=== PATIENT | male | born 1970 | race African-American/Black ===

== ENCOUNTER 2017-02-15 17:38 | Inpatient (IN) | payer OTHER ==
--- NOTE | ~2017-02-15 | CT4 ---
[facility] A Service of [facility] RADIOLOGY TEXT RESULTS PATIENT: WILLIAM AKINS LOCATION: [facility] 308-01 : 72 UNIT #: [id number] AGE: [address]: Robb Mon MD SEX: M ORDER DR: [id number] [facility] [address] [facility]. [place], [place] [address] [id number] MR#: [id number] Acc #: [id number] NAME: WILLIAM AKINS : 1970 SEX: M STUDY DATE/TIME: 02/16/2017 UNIT: [facility] ROOM: 80946 STUDY DESCRIPTION: CT Abd and Pelv Wo Cont Attending Physician: Lee Ann Ryan M.D. Ordering Physician: Lee Ann Ryan M.D. Primary Care Physician: Primary Care Physician No MEDICAL IMAGING REPORT This report is preliminary unless electronic signature is present EXAM CT abdomen and pelvis 02/16 at 00:46 hours INDICATIONS Generalized abdominal pain for the last 8 days with nausea. Acute kidney insufficiency. Leukocytosis. TECHNIQUE Axial images were obtained through the abdomen and pelvis without contrast. Comparison made with 02/15/2017 and 19:[address] exam was performed with one or more of the following radiation dose reduction techniques: automatic exposure control, adjustment of mA and/or kV according to patient size, and iterative reconstruction. FINDINGS Abdomen: Lung bases remain clear. The gallbladder surgically absent. No renal or ureteral stones. No hydronephrosis. Unenhanced solid organs are normal. Again seen are gas-filled large and small bowel loops suggesting an ileus. This is unchanged. No free fluid. Pelvis: Patient is status post appendectomy. GI tract, unchanged. Urinary bladder is normal. IMPRESSION No change from 02/15/2017 at 19:40 hours. Dictated by... Sudhakar Burns Jr., M.D. THIS IS AN ELECTRONICALLY VERIFIED REPORT [facility] A Service of [facility] RADIOLOGY TEXT RESULTS PATIENT: WILLIAM AKINS LOCATION: [facility] 308-01 : 72 UNIT #: [id number] AGE: [address]: Robb Mon MD SEX: M ORDER DR: Sudhakar Burns Jr., M.D. at 02/16/2017 11:15 AM RENITA/kendy TD: 02/16/2017 08:01 JOB #: [id number] MEDICAL IMAGING REPORT Page 1 of 1 COPY
--- NOTE | ~2017-02-15 | CO ---
Unit #: [id number] #: [id number] Patient: WILLIAM BATRES [id number] [address] [address] [id number] I MR#: [id number] NAME: WILLIAM BATRES ROOM: 308 Age: 46 Sex: M Admission Date: 02/15/2017 : 1970 Attending Physician: Robb Mon M.D. Primary Care Physician: Primary Care Physician No Consultation Date: 02/16/2017 CONSULTATION REPORT REASON FOR CONSULTATION Nausea, vomiting, dehydration, and weight loss. HISTORY OF PRESENT ILLNESS Mr. Batres is a 46-year-old gentleman, who lives with his mom. The patient is single and unemployed. He smokes a pack of cigarette daily and about four beers daily, but he uses daily marijuana. He has presented with a history of recurrent nausea and vomiting and significant weight loss. The patient mentions he has been to multiple ERs in the past few months. He has been smoking marijuana since the age of 17. The patient has had seven children from two relationships, but is currently single. He is admitted with acute kidney injury, volume depletion following nausea and vomiting. PAST MEDICAL HISTORY He mentions past medical history of gastroparesis as well as hypertension and gastroesophageal reflux.. PAST SURGICAL HISTORY Included a cholecystectomy and appendectomy. MEDICATIONS At home included Norvasc, Zofran, Protonix, Phenergan, Reglan, hydralazine. ALLERGIES He has no known drug allergies. FAMILY HISTORY Apparently, mother had gastroparesis. SOCIAL HISTORY Smokes a pack of cigarette daily and uses 4 to 5 beers daily. Also, uses daily marijuana. REVIEW OF SYSTEMS Detailed review of organ systems does not reveal any fever, chills, or rigors. There is history of significant weight loss. No history of headache, seizures, chest pain, or syncope. The patient has not had urination for the past few hours. No history of dysuria, hematuria, or pyuria. No history of focal seizures or extremity weakness. No history of skin rash, aphthous ulcer in the mouth, or reactive arthritis. PHYSICAL EXAMINATION GENERAL: He is alert and oriented, and appears emaciated. Unit #: [id number] #: [id number] Patient: BATRES,WILLIAM VITAL SIGNS: Stable with a temperature of 97.0, pulse 72 per minute and regular, respiratory rate is 20, blood pressure is 152/104. He weighs 159 pounds. HEENT: He has no pallor, icterus, lymphadenopathy, or peripheral edema. CARDIOVASCULAR: Normal heart sounds. No murmurs on auscultation. LUNGS: Reveals normal breath sounds. Good air entry. ABDOMEN: Soft and nontender. Liver and spleen are not palpable. Bowel sounds normal. DIAGNOSTIC STUDIES LABORATORY RESULTS: Shows a white count of 15,000 with left shift, hemoglobin is 13, and platelet count is 159. There is left shift and leukocytosis. BUN and creatinine shows BUN of 125 and creatinine of 8.7. Glucose of 132. Serum potassium was 3.1 and sodium 126. Albumin was 5.1, and CO2 on admission was 23. IMAGING STUDIES: A CT of the abdomen and pelvis without contrast was done and is unremarkable. CLINICAL IMPRESSION 1. The patient with severe volume depletion and acute kidney injury from volume losses due to nausea and vomiting. Although, it is tempting to assume that this is from gastroparesis. The patient most likely has cannabinoid hyperemesis syndrome and I spent a lot of time explaining him that this is relatively a new entry over the past few years and that he must stop marijuana, if he has to see if it is really the cause of his problem. The patient seemed to understand and promise that he will not smoke anymore marijuana. 2. Acute kidney injury, this is quite significant and profound due to volume depletion and is being taken care of by volume repletion and reversal of this should follow in due course of time. 3. Underlying medical problems such as hypertension, gastroesophageal reflux. The issue of compliance is a problem. Lastly, the patient has a significant tobacco abuse and alcohol abuse, and these were also addressed in detail. Thank you for asking me to see this young man. I appreciate the consult. Dictated by... Cedric Pedro/joan TD: 02/22/2017 23:09 JOB #: [id number] CC: Lee Ann Ryan M.D. CONSULTATION REPORT Page 1 of 1 X Marybeth,Sebastian Z MD X CONSULTATION REPORT
--- NOTE | ~2017-02-15 | CO ---
Unit #: [id number] #: [id number] Patient: WILLIAM BATRES [id number] [address] [address] [id number] I MR#: [id number] NAME: WILLIAM BATRES ROOM: 308 Age: 46 Sex: M Admission Date: 02/15/2017 : 1970 Attending Physician: Robb Mon M.D. Primary Care Physician: Lydia Primary Care Physician Consultation Date: 02/16/2017 CONSULTATION REPORT REASON FOR CONSULT Acute kidney injury. HISTORY OF PRESENT ILLNESS Mr. Batres is a 46-year-old -Salvadorean male with a history of gastroparesis, who apparently normally gets his care downtown at [facility], who presented with complaints of abdominal pain and a flare up of his gastroparesis. He says that he has been having trouble keeping anything down for about a week or so and has noticed a decreased urine output before coming in. His initial creatinine which was 8.7. Again, he says he has no knowledge of any prior kidney problems. He does not take any regular NSAIDs. He has no history of kidney stones. No recent dye exposure that I am aware of. Fortunately, his creatinine is improving with IV fluids. He does have a history of hypertension but tells me he has not been taking his medications for quite some time for his blood pressure. PAST MEDICAL HISTORY 1. Hypertension. 2. Gastroparesis, unknown etiology. 3. Tobacco abuse. 4. Marijuana use. 5. GERD. PAST SURGICAL HISTORY 1. Appendectomy. 2. Cholecystectomy. HOME MEDICATIONS 1. Hydralazine 25 mg p.o. t.i.d. 2. Amlodipine 10 mg daily. 3. Reglan 10 mg p.o. t.i.d. 4. Protonix 40 mg daily. 5. Zofran p.r.n. 6. Phenergan p.r.n. ALLERGIES No known drug allergies. FAMILY HISTORY Negative for any kidney problems. There is a family history of gastroparesis in his mom. SOCIAL HISTORY Unit #: [id number] #: [id number] Patient: WILLIAM BATRES The patient does smoke cigarettes and marijuana, social drinker. Denies any IV drug use. REVIEW OF SYSTEMS A complete 12-point review of systems was completed with the above findings. In addition, he denies any headaches or dizziness at this time. No nosebleed, sore throat, or ear ache. No chest pain or palpitations. No hemoptysis. No shortness of breath. No hematemesis. No bright red blood per rectum or melena. He is urinating now without difficulty. No hematuria. No swelling. He says that he has seen a orthotic finish grinding technician for a rash and they have said it is eczema. No flank pain. No fevers. No chills. No night sweats or hot flashes. No intolerance to heat or cold. No bleeding issues. He thinks he has lost weight with his recent illness. Unless otherwise indicated, the review of systems was negative. PHYSICAL EXAMINATION VITAL SIGNS: The patient is afebrile. Pulse 79, respiratory rate 18, blood pressure has been between 140/90 and 174/104. GENERAL: This is a 46-year-old -[place] male who is alert, oriented, in no acute distress. HEENT: Head is atraumatic, normocephalic. Eyes show pink conjunctivae. No scleral icterus. No nasal drainage or nosebleed. Oropharynx is now moist. No thrush. NECK: Shows no rigidity. No JVD. HEART: Regular rate and rhythm with no murmurs, gallops, or rubs appreciated. LUNGS: Clear with no wheezing, no rhonchi. Breathing is nonlabored. ABDOMEN: Soft with mild diffuse tenderness. No masses appreciated. EXTREMITIES: No lower extremity clubbing, cyanosis, or edema. SKIN: Skin is dry. He does have discolored maculopapular regions, especially on his trunks and arms which he says was diagnosed as eczema by a orthotic finish grinding technician. MUSCULOSKELETAL: No joint effusions noted. No CVA tenderness to palpation. NEUROLOGIC: Cranial nerves are grossly intact with no gross motor deficits. LYMPHATIC: There is no neck, cervical lymphadenopathy. PSYCHIATRIC: Mood and affect appear normal. DIAGNOSTIC STUDIES LABORATORY: Random urine sodium was just 11. Chemistry this morning showed a sodium of 128, potassium 3.8, chloride 90, bicarbonate 24, glucose 133, BUN 98, creatinine down to 5.8. Phosphorous 5.6. CK level 571. Magnesium was normal. CBC was remarkable for a hemoglobin 13, platelet count 159,000. Lactic acid level normal. Urine drug screen positive for opiates. Urinalysis did have some trace protein, 5-10 red blood cells with some hyaline and granular casts. Admission CK level was 875. Admission lactic acid level was 2.7. Admission sodium was 126 with a low potassium of 3.1. Bicarbonate was 23 and creatinine was 8.7. Therefore overall, patient's creatinine has improved from 8.7 down to 5.8. IMAGING: CT scan of the abdomen and pelvis without contrast done early this morning showed no kidney issues. There were some gas filled large and small bowel loops suggesting an ileus. ASSESSMENT AND PLAN 1. Acute kidney injury: This all looks prerenal from significant dehydration over the past week. He did get some Toradol in the ER Unit #: [id number] #: [id number] Patient: WILLIAM BATRES but seems to be improving nonetheless. We will continue fluids and manage his blood pressure. See no other reason for further workup at this time as long as he continues to improve. 2. Hypertension: Dr. Ryan has re-ordered his home medications and added some IV hydralazine and we can titrate his medicines from there. He says that he was not taking his home medications for quite some time, even before he got ill. 3. Hyponatremia: This is likely hypovolemic hyponatremia and is improving with saline which we will continue. 4. History of gastroparesis. 5. Elevated CPK level: I will check a TSH level for completeness sake. I would like to thank Dr. Ryan for this consult and the opportunity to participate in evaluation and care of Mr. Batres. Dictated by... Alvaro Rubalcava Jr., M.D. DOMINGO/joel TD: 02/16/2017 10:27 JOB #: [id number] CONSULTATION REPORT Page 1 of 1 X Alvaro Rubalcava MD CONSULTATION REPORT
--- NOTE | ~2017-02-15 | EKG ---
PATIENT: WILLIAM AKINS UNIT #: [id number] Ventricular Rate: 79 BPM Atrial Rate: 79 BPM P-R Interval: 156 ms QRS Duration: 102 ms Q-T Interval: 390 ms QTC Calculation(Bezet): 447 ms P Rayland: 80 degrees Calculated R Ray[place]: 94 degrees Calculated T Ray[place]: 47 degrees Diagnosis Line: Normal sinus rhythm Diagnosis Line: Possible Left atrial enlargement Diagnosis Line: Rightward axis Diagnosis Line: Borderline ECG Diagnosis Line: No previous ECGs available Diagnosis Line: Confirmed by ROXANA FLORES MD ([id number]) on 02/16/2017 Diagnosis Line: 10:48:10 PM INTERPRETING MD: SANDRA ROWAN
--- NOTE | ~2017-02-15 | HP ---
Unit #: [id number] #: [id number] Patient: WILLIAM BATRES [id number] [address] [address] [id number] I MR#: [id number] NAME: WILLIAM BATRES ROOM: 597[address] Age: 46 Sex: M Admission Date: 02/15/2017 : 1970 Attending Physician: Lee Ann Ryan M.D. Primary Care Physician: No Primary Care Physician HISTORY AND PHYSICAL CHIEF COMPLAINT Nausea, vomiting, no urination. HISTORY OF PRESENT ILLNESS Mr. Batres is a 41-year-old -Dominican male with a reported history of gastroparesis who presents to the emergency department with abdominal pain. The patient states his gastroparesis has been acting up recently. He has been unable to hold down any food or fluid. He is unable to tell me the last time he was really able to hold anything down. He noticed approximately one week ago he was having decreased urine output and states really he hadn't urinated since February 09. He started feeling worse and, thus, presented to our emergency department. Upon presentation, vital signs were all stable. Blood work, however, revealed an elevated creatinine of 8.7. The patient has received 3 L of fluid as a bolus and now is on normal saline at 200 an hour. He did receive a dose of Toradol prior to return of blood work. He also underwent a KUB that does not reveal any significant findings except maybe ileus. He is being admitted due to his elevated creatinine. He is still having achy abdominal pain diffusely but no longer having any vomiting. He does have some low grade nausea. He states he has tried Reglan in the past for his gastroparesis without any improvement. He is trying to get in to see a GI doctor but, unfortunately, does not have a primary care physician. He denies taking NSAIDs at home secondary to his abdominal pain. PAST MEDICAL HISTORY 1. Gastroparesis. 2. Tobaccoism. 3. Marijuana use. 4. Hypertension. 5. Gastroesophageal reflux disease. I will note, patient tells me that he doesn't have any medical problems but when I provided a list of his medications he has these underlying conditions. PAST SURGICAL HISTORY Includes: 1. Appendectomy. 2. Cholecystectomy. MEDICATIONS Home medications include: 1. Hydralazine 25 mg p.o. t.i.d. 2. Norvasc 10 mg daily. Unit #: [id number] #: [id number] Patient: WILLIAM BATRES 3. Reglan 10 mg p.o. t.i.d. 4. Zofran 4 mg every eight hours p.r.n. for nausea and vomiting. 5. Protonix 40 mg daily. 6. Phenergan 25 mg p.o. every four hours p.r.n. for nausea and vomiting. ALLERGIES No known drug allergies. FAMILY HISTORY Significant for gastroparesis which patient's mother also had. SOCIAL HISTORY The patient smokes a pack of cigarettes per day and has since age 27 for a 14 pack-year history of smoking. He does admit to occasional marijuana use but denies any other illicit drug use. He states he just drinks beer socially. REVIEW OF SYSTEMS The patient states he hasn't had a normal bowel movement in awhile. He denies any chest pain, he denies any shortness of breath, he denies any fever, he denies any chronic sinus infection, he denies any hemoptysis. He denies any hematuria or dysuria. He denies any joint pain. He did have fall last week while getting out of the bathtub but didn't sustain any injury. Otherwise, ten point review of systems reviewed and is negative. PHYSICAL EXAMINATION VITAL SIGNS: Temperature 98.0, blood pressure 161/96, pulse rate 81, respiratory rate 16. Oxygen saturation is in the upper 90s on room air. GENERAL: The patient is awake, he is alert. He is oriented x3 but is a poor historian. HEENT: Pupils equally round, reactive to light bilaterally. Anicteric sclerae. No conjunctival pallor. Oropharynx with dry mucous membranes. No erythema or exudate. NECK: Supple. No lymphadenopathy, no thyromegaly, no JVD. HEART: Regular rate and rhythm without murmur, rub or gallop. LUNGS: Clear to auscultation bilaterally without any wheezes, rhonchi or crackles. ABDOMEN: Soft. It is diffusely tender without guarding or rebound. It is nondistended. Positive bowel sounds. EXTREMITIES: No cyanosis, clubbing, or edema. Pedal pulses 2/4. SKIN: Warm, moist. There is no rash but there is some bruising and/or discoloration over the distal lower legs into the feet bilaterally. NEUROLOGIC: Cranial nerves II-XII are intact. Sensation, strength and deep tendon reflexes are all grossly normal. Negative Babinski. MUSCULOSKELETAL: No significant joint abnormalities appreciated on exam. No joint erythema or malformation. PSYCHIATRIC: Vague historian. Again, alert and oriented x3. No suicidal or homicidal ideations. DIAGNOSTIC STUDIES LABORATORY: Lab work done in the emergency department includes a CBC with white blood cell count of 15.7, hemoglobin 16.6, platelet count of 200. MCV is noted to be low at 71. Differential is normal. CMP reveals a sodium of 126, potassium 3.1, chloride 76, bicarb 25, BUN 125, creatinine 8.7, glucose of 132. Indirect bilirubin is mildly elevated at 1.4 and total bilirubin is 1.6. Total protein and albumin are Unit #: [id number] #: [id number] Patient: WILLIAM BATRES both high at 8.8 and 5.1 respectively. Amylase and lipase are normal. CPK is mildly elevated at 875. Lactic acid is 2.7. Urinalysis reveals trace protein, 100 of glucose, 1+ blood, 5-10 RBCs, 10-25 hyaline casts and 0-2 granular casts. No squamous cells were seen. IMAGING: KUB reveals gaseous distention of the small and large bowel concerning for ileus. ASSESSMENT 1. Acute kidney injury, likely prerenal plus or minus some component of tubular necrosis. Will rule out other etiology. 2. Hyponatremia, likely hypovolemic. 3. Hypokalemia. 4. Hypertension, controlled. 5. Leukocytosis, question reactive. 6. History of gastroparesis, poorly controlled per patient report. 7. Microcytosis. 8. Gastroesophageal reflux disease. 9. Marijuana use. 10. Tobaccoism. PLAN 1. Will admit patient to inpatient status with telemetry. 2. I am going to continue patient on normal saline at 200 mL/hour for 1 L and then continue at 150 mL/hour. I will also place Baum catheter and check bilateral renal ultrasound in addition to spot urine sodium, urine creatinine, urine protein and urine eosinophils. Will recheck CPK in the morning and will consult Dr. Jacome for further evaluation. Given patient's complaint of chest pain, I am also going to check CT scan of abdomen and pelvis, particularly in regards to acute kidney injury. I suspect his abdominal pain is muscular in origin. 3. Will continue IV fluids in regards to hyponatremia. Will have to monitor closely but I suspect this hyponatremia is rather acute. 4. Will replace potassium orally for now. I am going to hold on K-Mag protocol given it is unclear to me what his renal function will be in the morning and this can be replaced if it remains low. I will also check a magnesium level up on lab. 5. Will continue patient on his scheduled Reglan and provide p.r.n. Zofran for his gastroparesis. I am going to ask Dr. Rueda to evaluate the patient given his gastroparesis appears to be quite severe. 6. Will check iron levels in regards to patient's macrocytosis. Perhaps he has an underlying thalassemia if these are normal. 7. Will continue home medications for hypertension and monitor blood pressure. I will also provide hydralazine on a p.r.n. basis. 8. Will check urine drug screen in regards to history of marijuana use. 9. Briefly counsellors regarding tobaccoism. 10. Heparin for DVT prophylaxis. Dictated by Lee Ann Ryan M.D. [facility]/ Unit #: [id number] #: [id number] Patient: WILLIAM BATRES TD: 02/16/2017 05:52 JOB #: [id number] HISTORY AND PHYSICAL Page 1 of 1 X Lee Ann Ryan MD X HISTORY AND PHYSICAL
--- NOTE | ~2017-02-15 | DS ---
Unit #: [id number] #: [id number] Patient: WILLIAM AKINS [id number] [address] [address] [id number] I MR#: [id number] NAME: WILLIAM AKINS ROOM: 308 Age: 46 Sex: M Admission Date: 02/15/2017 : 1970 Discharge Date: 02/18/2017 Attending Physician: Robb Mon M.D. Primary Care Physician: No Primary Care Physician DISCHARGE SUMMARY DISCHARGE DIAGNOSES 1. Cyclical nausea and vomiting. 2. Cannabinoid induced hyperemesis. 3. Major depression without homicidal or suicidal ideation. 4. Acute renal failure, prerenal in nature, resolved at this time. 5. Resolved hyponatremia. 6. Hyperkalemia. 7. Essential hypertension. 8. Resolved leukocytosis. 9. History of gastroparesis. 10. Gastroesophageal reflux disease. 11. Tobacco usage. 12. All over body rash. PROCEDURES The patient had an upper EGD by Dr. Rueda on 02/16/17 with findings of distal confluent ulcerative gastritis as well as Lauren's esophagus. Biopsies were obtained. RYDER test was negative. Distal esophageal benign stricture which is clearly obstructing. The later was dilated using an 18 to 20 mm TTS balloon. Gastric cavity itself was normal. The patient had diffuse duodenitis involving the duodenal bulb as well as flattened folds in second and third part of duodenum. Biopsies were obtained from the antrum for RDYER test. In addition, biopsies were also obtained for histology. IMAGING 1. The patient had a 'chest x-ray of the abdomen' [sic] with impression diffuse gaseous distension in the small and large bowel likely reflecting an ileus. No free fluid was identified. Right side aortic arch. No active pulmonary disease. 2. CT abdomen and pelvis with impression cholecystectomy and appendectomy change with distension of small bowel, small loops of which are air filled and a few which are fluid filled. There is gas and stool in the colon. Findings suggest dynamic ileus rather than bowel obstruction. No definite bowel wall thickening or free fluid. No abscess or free air. 3. CT abdomen, again on 02/16/17. Impression: No change from 02/15/17. 4. Renal ultrasound on 02/16/17. Impression: Both kidneys show increased parenchymal echotexture suggesting changes of chronic renal disease. No hydronephrosis. LABS On the day of discharge, the patient's labs were: 1. BMP: Glucose of 137, BUN 13, creatinine 1.0, sodium 135, potassium Unit #: [id number] #: [id number] Patient: WILLIAM AKINS 3.0, chloride 99, CO2 27, calcium 8.1, phosphorous 5.6, magnesium 1.6, total protein 6.0, albumin 3.4, total bilirubin 2.7, AST 31, ALT 23, alkaline phosphatase 47. Amylase 47, lipase 37. 2. CBC with WBC of 11.4, RBC 5.36, hemoglobin 12.3, hematocrit 39.4, MCV 73.4, MCH 72.9, MCHC 31.2, RDW 13.1, platelets 142, MPV 8.9. HOSPITAL COURSE The patient is a 46-year-old -Maced[place] male with past medical history of essential hypertension, gastroparesis, tobacco usage, marijuana usage, gastroesophageal reflux disease, who presented to the emergency department with abdominal pain. The patient stated that his chronic gastroparesis had been acting up. He has not been able to hold down any food or liquid. He noticed about one week prior to admission he had decreased urine output and stated that he really had not urinated since February 09. He started feeling worse and presented to the emergency department. In the emergency department, his vital signs were stable and his workup revealed a creatinine of 8.7. The patient was given three liters of fluid as bolus and had normal saline running at 200 an hour. He was given a dose of Toradol prior to the workup. He had undergone a KUB that had no significant findings. He was admitted for elevated creatinine as well as nausea, vomiting. He was seen in consultation with Dr. Rueda who did an upper endoscopy. Please refer to his full dictated procedure for further details. Following the procedure, the patient was tolerating a liquid diet. He was also seen in consultation with Dr. Rubalcava from Nephrology from his acute renal failure. His renal failure was thought to be prerenal in nature and, after much aggressive IV fluid hydration, his creatinine today is 1.0 in comparison to 8.7 on admission. His estimated GFR is 105.6 compared to 8 on admission. The patient was also complaining to me about feeling quite depressed about his overall health but the patient had denied any homicidal nor suicidal ideation. I have initiated the patient on Paxil and had reminded him that he would need four to six weeks for any resolution or to see any improvement in his symptoms. He voiced understanding. The patient also complains to me about an all over body rash and examined this. He has blemishes, darkened skin all over his hands, some on his shoulders. I did not see on any trunk at this time. With his history of being previously incarcerated. I had checked for an HIV screening which was nonreactive. At this time, I will treat the patient supportively with a topical steroid and he can follow up with his primary care physician for this. DISCHARGE CONDITION Stable, to home. DISCHARGE ACTIVITY No restriction. The patient is to ambulate every day as tolerated as was prior to hospitalization. DISCHARGE DIET No restriction. DISCHARGE MEDICINES 1. Paxil 20 mg orally daily. 2. Zofran 4 mg orally every eight hours as needed for nausea. A prescription for 15 was given. 3. Phenergan 25 mg orally every four hours as needed for nausea. 4. Reglan 10 mg orally three times daily. A prescription for seven days was given. 5. Norvasc 10 mg orally daily. Unit #: [id number] #: [id number] Patient: WILLIAM AKINS 6. Hydralazine 25 mg orally three times daily. 7. Protonix 40 mg orally twice daily. A prescription was given. 8. Clobetasol cream 0.05% apply to the affected rash area three times daily as needed for itchiness. The patient tells me that he has no PCP and I have given him Dr. Vargas's office to follow up with. The patient is also to follow up with Dr. Rueda and to please call his office for the followup appointment. Dictated by... Kervin Orta PA-C for Cedric Arteaga TD: 02/20/2017 07:35 JOB #: [id number] DISCHARGE SUMMARY Page 1 of 1 X X DISCHARGE SUMMARY
--- NOTE | ~2017-02-15 | US77 ---
[facility] A Service of [facility] RADIOLOGY TEXT RESULTS PATIENT: WILLIAM AKINS LOCATION: [facility] : 74 UNIT #: [id number] AGE: [address]: Robb Mon MD SEX: M ORDER DR: [id number] [address] [address] [id number] I MR#: [id number] Acc #: [id number] NAME: WILLIAM AKINS : 1970 SEX: M STUDY DATE/TIME: 02/16/2017 9:17 UNIT: [facility] PCU ROOM: [facility] STUDY DESCRIPTION: US Kidney Bilateral Complete Attending Physician: Robb Mon M.D. Ordering Physician: Lee Ann Ryan M.D. Primary Care Physician: No Primary Care Physician MEDICAL IMAGING REPORT This report is preliminary unless electronic signature is present EXAM Renal ultrasound. INDICATION Renal insufficiency. BUN 98, creatinine 5.8, GFR 12.6. PROCEDURE Celaya-scale and Doppler imaging of the kidneys and bladder. COMPARISON STUDIES CT from 02/16/2017. FINDINGS Right kidney measures 9.9 cm. Bladder decompressed. Left kidney measures 9.8 cm. No hydronephrosis. Both kidneys show increased echotexture. IMPRESSION Both kidneys show increased parenchymal echotexture suggesting changes of chronic renal disease. No hydronephrosis. Dictated by... Neil Arana M.D. THIS IS AN ELECTRONICALLY VERIFIED REPORT Neil Arana M.D. at 02/17/2017 7:11 AM EED/kavon TD: 02/16/2017 12:21 JOB #: [id number] [facility] A Service of [facility] RADIOLOGY TEXT RESULTS PATIENT: WILLIAM AKINS LOCATION: [facility] : 74 UNIT #: [id number] AGE: [address]: Robb Mon MD SEX: M ORDER DR: MEDICAL IMAGING REPORT Page 1 of 1 COPY
--- NOTE | ~2017-02-15 | OR ---
Unit #: [id number] #: [id number] Patient: WILLIAM AKINS [id number] [address] [address] [id number] I MR#: [id number] NAME: WILLIAM AKINS ROOM: 308 Date of Procedure: 02/16/2017 Admission Date: 02/15/2017 Surgeon: Sebastian Rueda M.D. : 1970 Attending Physician: Robb Mon M.D. OPERATIVE REPORT PREOPERATIVE DIAGNOSIS Volume depletion, nausea, and vomiting. PROCEDURES PERFORMED Upper gastrointestinal endoscopy and biopsy as well as upper gastrointestinal endoscopy and a dilation with an 18 to 20 mm TTS balloon. POSTOPERATIVE DIAGNOSES 1. The patient had distal confluent ulcerative esophagitis as well as Lauren esophagus. Appropriate biopsies were obtained. 2. There was distal esophageal benign stricture, which was clearly obstructing. The latter was dilated using an 18 to 20 mm TTS balloon. 3. The gastric cavity itself was normal. 4. The patient had diffuse duodenitis involving the duodenal bulb as well as flattened folds in second and third part of duodenum. Biopsies were obtained from the antrum for CLOtest. In addition, biopsies were also obtained for histology. RECOMMENDATIONS The patient most likely has cannabinoid hyperemesis syndrome and must stop marijuana. We will do volume repletion and monitor the renal function. Also, the patient will be on b.i.d. PPI therapy, which is far more effective than the H2 blockers he is currently on. He can also advance diet as tolerated. SEDATION USED MAC. DESCRIPTION OF PROCEDURE Following detailed explanation of the potential risks and complications of an upper endoscopy, namely perforation, bleeding, and complication related to sedation, the patient was brought to GI lab and laid in the left lateral decubitus position. Lubricated tip of the Olympus video upper endoscope was passed through the bite block into the proximal esophagus under direct vision. The entire esophageal mucosa was examined. The patient was noted to have distal esophageal benign stricture with a classic appearance along with confluent ulcerative esophagitis as well as evidence of Lauren esophagus. The scope was then advanced into the gastric cavity and the latter was insufflated. Mucosa of the fundus, body, and antrum was examined and appeared unremarkable. Pylorus was intubated with visualization of the duodenal bulb. The latter was noted to have diffuse duodenitis with erosions and erythema. Second and third Unit #: [id number] #: [id number] Patient: WILLIAM AKINS part of the duodenum appeared to have somewhat flattened mucosal folds. Biopsies were obtained from these areas for histology. The scope was then withdrawn in the antrum and retroverted, whereupon incisura, cardia, and greater curve was examined and a biopsy was obtained from the antrum for CLOtest. The scope was then withdrawn in the distal esophagus. An 18 to 20 mm TTS balloon was passed through the accessory channel of the scope and step-up dilation of the distal esophageal stricture was done. The entire esophageal mucosa was examined all the way up to pharynx and no additional findings were noted. The patient tolerated the procedure without any postprocedure complications. Dictated by... Cedric Pedro/joan TD: 02/17/2017 23:35 JOB #: [id number] CC: Lee Ann Ryan M.D. OPERATIVE REPORT Page 1 of 1 X Sebastian Rueda MD X PROCEDURE OPERATIVE NOTE
--- NOTE | ~2017-02-15 | CT4 ---
[facility] A Service of [facility] & [facility] RADIOLOGY TEXT RESULTS PATIENT: WILLIAM AKINS LOCATION: [facility] 308-01 : 74 UNIT #: [id number] AGE: [address]: Robb Mon MD SEX: M ORDER DR: [id number] [facility] [address] [facility] [place], [place] [address] [id number] I MR#: [id number] Acc #: [id number] NAME: WILLIAM AKINS : 1970 SEX: M STUDY DATE/TIME: 02/15/2017 19:40 UNIT: [facility] ROOM: 52671 STUDY DESCRIPTION: CT Abd and Pelv Wo Cont Attending Physician: Lee Ann Ryan M.D. Ordering Physician: Emerson Mullen M.D. Primary Care Physician: Primary Care Physician No MEDICAL IMAGING REPORT This report is preliminary unless electronic signature is present EXAM CT abdomen and pelvis without contrast 02/15/2017 1940 hours HISTORY 46-year-old man with abdominal pain, nausea, vomiting and diarrhea beginning 02/08/2017, complaining of weakness and dehydration today. Difficulty urinating for 1 week. COMPARISON Acute abdomen series 02/15/2017 TECHNIQUE Helical noncontrasted images were obtained from the lung bases through the pubic symphysis without oral or intravenous contrast. Sagittal and coronal reconstructions were performed. Total exam DLP 674 mGy-cm. This CT exam was performed with one or more of the following radiation dose reduction techniques: Automatic exposure control, adjustment of mA and/or kV according to patient size, and iterative reconstruction. FINDINGS Images through the lung bases are clear. It appears the descending thoracic aorta is to the right of the esophagus and crosses to the left at the esophageal hiatus. Images through the abdomen demonstrate a normal noncontrasted appearance of the liver, spleen, pancreas and bile ducts. There are clips consistent with prior cholecystectomy. The adrenal glands are normal. The kidneys demonstrate no mass, stone or obstruction. There is no ureteral calculus. The bladder is normal. The stomach contains a small amount of fluid but is nondistended. There is distension of multiple loops of small bowel and colon, some of which STS. [facility] A Service of [facility] & [facility] RADIOLOGY TEXT RESULTS PATIENT: WILLIAM AKINS LOCATION: [facility] 308-01 : 74 UNIT #: [id number] AGE: [address]: Robb Mon MD SEX: M ORDER DR: are air-filled and some of which are fluid-filled. Findings are most suggestive of an adynamic ileus. There is moderate stool in the right colon only. There are clips consistent with prior appendectomy. CT pelvis demonstrates a normal appearance to the bladder. The rectosigmoid colon is decompressed. IMPRESSION 1. Cholecystectomy and appendectomy change. 2. There is distension of small bowel, some loops of which are air-filled and a few of which are fluid-filled. There is gas and stool in the colon. Findings suggest adynamic ileus rather than bowel obstruction. There is no definite bowel wall thickening or free fluid. No abscess or free air. Dictated by... Kendra Grajeda M.D. THIS IS AN ELECTRONICALLY VERIFIED REPORT Kendra Grajeda M.D. at 02/16/2017 9:29 AM CAPO/marisa TD: 02/16/2017 00:00 JOB #: [id number] MEDICAL IMAGING REPORT Page 1 of 1 COPY
--- NOTE | ~2017-02-15 | CR2 ---
[facility] A Service of [facility] & [facility] RADIOLOGY TEXT RESULTS PATIENT: WILLIAM AKINS LOCATION: [facility] 308-01 : 74 UNIT #: [id number] AGE: [address]: Robb Mon MD SEX: M ORDER DR: [id number] [facility] [address] [facility]. [place], [place] [address] [id number] E MR#: [id number] Acc #: [id number] NAME: WILLIAM AKINS : 1970 SEX: M STUDY DATE/TIME: 02/15/2017 17:44 UNIT: [facility] ROOM: STUDY DESCRIPTION: CR Abdomen Acute Series Attending Physician: Nadeen Caldwell M.D. Ordering Physician: Emerson Mullen M.D. Primary Care Physician: Primary Care Physician No MEDICAL IMAGING REPORT This report is preliminary unless electronic signature is present EXAM Acute abdomen series, 3 views, 02/15/2017 HISTORY Abdomen pain and vomiting for 1 week. FINDINGS There is no prior exam for comparison. 3 views of the chest and abdomen were obtained. There is diffuse gaseous distension of the small and large bowel likely reflecting ileus. No free air is identified. Surgical clips are seen in the right upper quadrant and right lower quadrant. The heart is normal in size. A right side aortic arch is noted. Lungs are hyperinflated but otherwise clear. There are no pleural effusions. IMPRESSION 1. No prior exam for comparison. 2. Diffuse gaseous distension of the small and large bowel likely reflecting ileus. No free air is identified. 3. Right side aortic arch. No active pulmonary disease. Dictated by... Felipe Cast M.D. THIS IS AN ELECTRONICALLY VERIFIED REPORT Felipe Cast M.D. at 02/16/2017 10:27 AM BESS/marisa TD: 02/15/2017 22:32 JOB #: [id number] MEDICAL IMAGING REPORT Page 1 of 1 COPY
[2017-02-15 18:26] LABS: BASOPHIL# 0.1 X10e3 (0-0.3); BASOPHIL% 0.4 % (0-2.5); EOSINOPHIL% 0.2 % (0.0-7.0); HEMATOCRIT 51.9 % (38.0-50.0); HEMOGLOBIN 16.6 gm/dL (13.0-16.0); LYMPHOCYTE# 1.8 X10e3 (1.0-3.5); LYMPHOCYTE% 11.7 % (17.0-45.0); MEAN CELL VOLUME 71.7 FL (83-96); MEAN CORPUSCULAR HEMOGLOBIN 22.9 PG (28-34); MEAN PLATELET VOLUME 9.6 FL (6.5-11.5); MONOCYTE# 1.7 X10e3 (0-1.0); MONOCYTE% 10.6 % (3.0-12.0); NEUTROPHIL# 12.1 X10e3 (1.5-7.1); NEUTROPHIL% 77.1 % (40-75); PLATELET COUNT 200 X10e3 (140-420); RED BLOOD COUNT 7.23 X10e (3.90-5.60); RED CELL DISTRIBUTION WIDTH 14.2 % (11.0-15.5); WHITE BLOOD COUNT 15.7 X10e3 (4.0-10.5)
[2017-02-15 18:30] LABS: DIFF IND YES
[2017-02-15 18:48] LABS: ACANTHOCYTES PRESENT; ANISOCYTOSIS SL; HYPOCHROMIA SL; MICROCYTOSIS SL; PLATELET ESTIMATE NORMAL (NORMAL); POIKILOCYTOSIS SL; TARGET CELLS SL
[2017-02-15 18:49] LABS: OVALOCYTES PRESENT
[2017-02-15 19:17] LABS: ALBUMIN SERUM 5.1 g/dL (3.5-5.0); BILIRUBIN, DIRECT 0.2 mg/dL (0.0-0.2); BILIRUBIN,INDIRECT 1.4 mg/dL (0.0-0.9); BILIRUBIN,TOTAL 1.6 mg/dL (0.2-2.0); CALCIUM SERUM 9.9 mg/dL (8.4-10.2); CREATININE SERUM 8.7 mg/dL (0.6-1.4); PROTEIN TOTAL SERUM 8.8 g/dL (6.0-8.3)
[2017-02-15 19:18] LABS: BUN/CREATININE RATIO 14.36; POTASSIUM 3.1 mmol/L (3.5-5.1)
[2017-02-15] MEDS ORDERED: NO MEDICATIONS (20:43)
[2017-02-15 22:46] LABS: URINE SOURCE CLEAN CATCH
[2017-02-15 22:48] LABS: URINE APPEARANCE CLEAR; URINE BILIRUBIN NEG (NEG); URINE BLOOD 1+ (NEG); URINE COLOR YELLOW; URINE GLUCOSE 100 MG/DL (NEG); URINE KETONE NEG (NEG); URINE LEUKOCYTE ESTERASE NEG (NEG); URINE NITRATE NEG (NEG); URINE PROTEIN TRACE (NEG); URINE SPECIFIC GRAVITY 1.015 (1.003-1.035); URINE UROBILINOGEN 0.2 MG/DL (NEG)
[2017-02-15 22:50] LABS: URINE BACTERIA AUWI NEG (NEGATIVE); URINE SQUAMOUS EPITHELIAL CELL NONE SEEN /[HPF]
[2017-02-15 23:03] LABS: CULTURE INDICATED? NO
[2017-02-15 23:04] LABS: URINE GRANULAR CAST 0-2 /[HPF]
[2017-02-15] MEDS ORDERED: HYDRALAZINE HCL25 MG PO (23:15)
[2017-02-15] MEDS ORDERED: REGLAN10 MG PO (23:16)
[2017-02-15] MEDS ORDERED: AMLODIPINE BESY10 MG PO (23:16)
[2017-02-15] MEDS ORDERED: ZOFRAN PO (23:17)
[2017-02-15] MEDS ORDERED: PROTONIX PO (23:17)
[2017-02-15] MEDS ORDERED: PHENERGAN25 M1 PO (23:17)
[2017-02-16 00:13] LABS: AMPHETAMINE NEG (NEG); BARBITURATES NEG (NEG); BENZODIAZEPINES NEG (NEG); COCAINE NEG (NEG); MARIJUANA NEG (NEG); OPIATES POS (NEG); TRICYCLIC ANTIDEPRESSANTS NEG (NEG); U METHADONE NEG (NEG)
[2017-02-16 05:21] LABS: HEMATOCRIT 40.9 % (38.0-50.0); LYMPHOCYTE# 0.4 X10e3 (1.0-3.5); LYMPHOCYTE% 4.2 % (17.0-45.0); MEAN CELL VOLUME 72.1 FL (83-96); MEAN CORPUSCULAR HEMOGLOBIN 23.1 PG (28-34); MEAN CORPUSCULAR HGB CONC 32.1 g/dL (30-36); MEAN PLATELET VOLUME 9.3 FL (6.5-11.5); MONOCYTE# 0.3 X10e3 (0-1.0); MONOCYTE% 3.5 % (3.0-12.0); NEUTROPHIL# 8.3 X10e3 (1.5-7.1); NEUTROPHIL% 92.3 % (40-75); PLATELET COUNT 159 X10e3 (140-420); RED BLOOD COUNT 5.68 X10e (3.90-5.60); RED CELL DISTRIBUTION WIDTH 13.8 % (11.0-15.5)
[2017-02-16 05:23] LABS: DIFF IND NO; HEMOGLOBIN 13.1 gm/dL (13.0-16.0)
[2017-02-16 06:10] LABS: BUN/CREATININE RATIO 16.89; CALCIUM SERUM 8.4 mg/dL (8.4-10.2); GLOM FILT RATE Estimated 12.6 mL/min (>60); MAGNESIUM 2.4 mg/dL (1.6-3.0); PHOSPHOROUS 5.6 mg/dL (2.5-4.6); POTASSIUM 3.8 mmol/L (3.5-5.1)
[2017-02-16 06:14] LABS: CREATININE SERUM 5.8 mg/dL (0.6-1.4)
[2017-02-16 07:45] LABS: CREATININE,RANDOM URINE 154 mg/dL; SODIUM URINE RANDOM 11 mmol/L
[2017-02-17 12:51] LABS: HEMATOCRIT 36.6 % (38.0-50.0); HEMOGLOBIN 11.4 gm/dL (13.0-16.0); MEAN CELL VOLUME 73.8 FL (83-96); MEAN CORPUSCULAR HEMOGLOBIN 22.9 PG (28-34); MEAN CORPUSCULAR HGB CONC 31.1 g/dL (30-36); MEAN PLATELET VOLUME 9.8 FL (6.5-11.5); RED BLOOD COUNT 4.96 X10e (3.90-5.60); RED CELL DISTRIBUTION WIDTH 13.8 % (11.0-15.5); WHITE BLOOD COUNT 13.4 X10e3 (4.0-10.5)
[2017-02-17 15:56] LABS: ALBUMIN SERUM 3.6 g/dL (3.5-5.0); BILIRUBIN,TOTAL 0.7 mg/dL (0.2-2.0); BUN/CREATININE RATIO 23.07; CALCIUM SERUM 8.3 mg/dL (8.4-10.2); CREATININE SERUM 1.3 mg/dL (0.6-1.4); GLOM FILT RATE Estimated 76.9 mL/min (>60); POTASSIUM 3.5 mmol/L (3.5-5.1); PROTEIN TOTAL SERUM 6.3 g/dL (6.0-8.3)
[2017-02-18 11:44] LABS: HEMATOCRIT 39.4 % (38.0-50.0); HEMOGLOBIN 12.3 gm/dL (13.0-16.0); MEAN CELL VOLUME 73.4 FL (83-96); MEAN CORPUSCULAR HEMOGLOBIN 22.9 PG (28-34); MEAN CORPUSCULAR HGB CONC 31.2 g/dL (30-36); MEAN PLATELET VOLUME 8.9 FL (6.5-11.5); RED BLOOD COUNT 5.36 X10e (3.90-5.60); RED CELL DISTRIBUTION WIDTH 14.1 % (11.0-15.5); WHITE BLOOD COUNT 11.4 X10e3 (4.0-10.5)
[2017-02-18 12:24] LABS: ALBUMIN SERUM 3.4 g/dL (3.5-5.0); BILIRUBIN,TOTAL 0.7 mg/dL (0.2-2.0); CALCIUM SERUM 8.1 mg/dL (8.4-10.2); GLOM FILT RATE Estimated 105.6 mL/min (>60); MAGNESIUM 1.6 mg/dL (1.6-3.0)
[2017-02-18] MEDS ORDERED: PAXIL PO (15:21)
[2017-02-18] MEDS ORDERED: PROTONIX PO (15:22)
[2017-02-18] MEDS ORDERED: CLOBETASOL 0.0560 GM TOP (15:23)
== END 2017-02-18 17:43 | disposition home or self-care (01) | DRG 683 ==
LOC: CED 17:38 → CEDOF 17:39 → C3A PCU 02-16 08:14
PROVIDERS: Emergency Medicine; Internal Medicine; Internal Medicine Nephrology; Physician Assistant Medical
PROC: 0DB98ZX Excision of Duodenum, Via Natural or Artificial Opening Endoscopic, Diagnostic (ICD-10-PCS; principal; 2017-02-15)
PROC: 0DB68ZX Excision of Stomach, Via Natural or Artificial Opening Endoscopic, Diagnostic (ICD-10-PCS; 2017-02-15)
PROC: 0D738ZZ Dilation of Lower Esophagus, Via Natural or Artificial Opening Endoscopic (ICD-10-PCS; 2017-02-15)
DX: N17.9 Acute kidney failure, unspecified (principal); E87.1 Hypo-osmolality and hyponatremia; K31.84 Gastroparesis; E87.5 Hyperkalemia; K22.2 Esophageal obstruction; I10 Essential (primary) hypertension; F12.988 Cannabis use, unspecified with other cannabis-induced disorder; R11.2 Nausea with vomiting, unspecified; F32.9 Major depressive disorder, single episode, unspecified; K21.9 Gastro-esophageal reflux disease without esophagitis; R21 Rash and other nonspecific skin eruption; F17.210 Nicotine dependence, cigarettes, uncomplicated; K22.70 Barrett's esophagus without dysplasia; K29.80 Duodenitis without bleeding; Z91.14 Patient's other noncompliance with medication regimen; Z79.899 Other long term (current) drug therapy
CPT/HCPCS: 74022; 74176; 76770; 80048; 80053; 80076; 80307; 81003; 82150; 82550; 82570; 83540; 83550; 83605; 83690; 83735; 84100; 84156; 84300; 84443; 85025; 85027; 87040; 87077; 87806; 88305; 88312; 89190; 93005; 96361; 96374; 96375; 99291; J0360; J1200; J1644; J1885; J2250; J2270; J2405; J2543; J2930; J3010; J3475

== ENCOUNTER 2017-02-22 23:59 | Emergency (ER) | payer OTHER ==
[~2017-02-22 23:59] MED LIST: AMLODIPINE BESY10 MG PO; CLOBETASOL 0.0560 GM TOP; HYDRALAZINE HCL25 MG PO; NO MEDICATIONS; PAXIL PO; PHENERGAN25 M1 PO; PROTONIX PO; REGLAN10 MG PO; ZOFRAN PO
[2017-02-23 02:45] LABS: BASOPHIL# 0.2 X10e3 (0-0.3); BASOPHIL% 0.8 % (0-2.5); EOSINOPHIL% 0.2 % (0.0-7.0); HEMOGLOBIN 11.4 gm/dL (13.0-16.0); LYMPHOCYTE# 1.9 X10e3 (1.0-3.5); LYMPHOCYTE% 10.2 % (17.0-45.0); MEAN CELL VOLUME 74.1 FL (83-96); MEAN CORPUSCULAR HEMOGLOBIN 22.8 PG (28-34); MEAN CORPUSCULAR HGB CONC 30.7 g/dL (30-36); MEAN PLATELET VOLUME 8.6 FL (6.5-11.5); MONOCYTE# 0.8 X10e3 (0-1.0); MONOCYTE% 4.1 % (3.0-12.0); NEUTROPHIL# 16.1 X10e3 (1.5-7.1); NEUTROPHIL% 84.7 % (40-75); PLATELET COUNT 263 X10e3 (140-420); RED CELL DISTRIBUTION WIDTH 14.5 % (11.0-15.5); WHITE BLOOD COUNT 19.1 X10e3 (4.0-10.5)
[2017-02-23 02:46] LABS: DIFF IND YES
[2017-02-23 03:00] LABS: MICROCYTOSIS MOD; PLATELET ESTIMATE NORMAL (NORMAL)
[2017-02-23 03:22] LABS: ALBUMIN SERUM 3.7 g/dL (3.5-5.0); BILIRUBIN, DIRECT 0.1 mg/dL (0.0-0.2); BILIRUBIN,INDIRECT 0.5 mg/dL (0.0-0.9); BILIRUBIN,TOTAL 0.6 mg/dL (0.2-2.0); GLOM FILT RATE Estimated 105.6 mL/min (>60); POTASSIUM 3.5 mmol/L (3.5-5.1); PROTEIN TOTAL SERUM 6.5 g/dL (6.0-8.3)
== END 2017-02-23 04:57 | disposition home or self-care (01) ==
LOC: CED 23:59
PROVIDERS: Emergency Medicine
DX: R10.12 Left upper quadrant pain (principal); R11.2 Nausea with vomiting, unspecified; E11.9 Type 2 diabetes mellitus without complications; I10 Essential (primary) hypertension; Z90.49 Acquired absence of other specified parts of digestive tract; F17.200 Nicotine dependence, unspecified, uncomplicated; Z79.899 Other long term (current) drug therapy
CPT/HCPCS: 36415; 80048; 80076; 82150; 83690; 85025; 96361; 96374; 96375; 99284; J2270; J2405

== ENCOUNTER 2017-02-27 08:04 | Emergency (ER) | payer OTHER ==
[2017-02-27 08:30] LABS: BASOPHIL# 0.1 X10e3 (0-0.3); BASOPHIL% 0.4 % (0-2.5); EOSINOPHIL# 0.1 X10e3 (0-0.7); EOSINOPHIL% 0.7 % (0.0-7.0); HEMOGLOBIN 11.8 gm/dL (13.0-16.0); LYMPHOCYTE# 1.7 X10e3 (1.0-3.5); MEAN CELL VOLUME 74.4 FL (83-96); MEAN CORPUSCULAR HEMOGLOBIN 23.2 PG (28-34); MEAN CORPUSCULAR HGB CONC 31.1 g/dL (30-36); MONOCYTE# 0.6 X10e3 (0-1.0); MONOCYTE% 4.7 % (3.0-12.0); NEUTROPHIL# 10.9 X10e3 (1.5-7.1); NEUTROPHIL% 81.2 % (40-75); PLATELET COUNT 287 X10e3 (140-420); RED BLOOD COUNT 5.11 X10e (3.90-5.60); RED CELL DISTRIBUTION WIDTH 14.7 % (11.0-15.5); WHITE BLOOD COUNT 13.4 X10e3 (4.0-10.5)
[2017-02-27 08:33] LABS: DIFF IND NO
[2017-02-27 09:42] LABS: ALBUMIN SERUM 3.6 g/dL (3.5-5.0); BILIRUBIN,TOTAL 0.4 mg/dL (0.2-2.0); BUN/CREATININE RATIO 14.44; CALCIUM SERUM 8.8 mg/dL (8.4-10.2); CREATININE SERUM 0.9 mg/dL (0.6-1.4); POTASSIUM 3.7 mmol/L (3.5-5.1); PROTEIN TOTAL SERUM 6.7 g/dL (6.0-8.3)
[2017-02-27 10:34] LABS: URINE SOURCE CLEAN CATCH
[2017-02-27 10:46] LABS: URINE APPEARANCE CLEAR; URINE BILIRUBIN NEG (NEG); URINE BLOOD NEG (NEG); URINE COLOR YELLOW; URINE GLUCOSE 250 MG/DL (NEG); URINE KETONE 1+ (NEG); URINE LEUKOCYTE ESTERASE NEG (NEG); URINE NITRATE NEG (NEG); URINE PH 6.5 (5-8); URINE PROTEIN NEG (NEG); URINE SPECIFIC GRAVITY 1.023 (1.003-1.035); URINE UROBILINOGEN 0.2 MG/DL (NEG)
[2017-02-27 10:56] LABS: CULTURE INDICATED? NO
[2017-02-27 10:57] LABS: AMPHETAMINE NEG (NEG); BARBITURATES NEG (NEG); BENZODIAZEPINES NEG (NEG); COCAINE NEG (NEG); MARIJUANA POS (NEG); OPIATES POS (NEG); TRICYCLIC ANTIDEPRESSANTS NEG (NEG); U METHADONE NEG (NEG)
== END 2017-02-27 13:41 | disposition home or self-care (01) ==
LOC: CED 08:04
PROVIDERS: Nurse Practitioner
DX: R10.9 Unspecified abdominal pain (principal); R19.7 Diarrhea, unspecified; R11.2 Nausea with vomiting, unspecified; Z79.899 Other long term (current) drug therapy
CPT/HCPCS: 36415; 80053; 80307; 81003; 83690; 85025; 96361; 96374; 96375; 99284; C9113; G0480; J1200; J1885; J2270; J2405; J2550; J2765

== ENCOUNTER 2017-07-27 21:11 | Inpatient (IN) | payer OTHER ==
--- NOTE | ~2017-07-27 | DS ---
Unit #: [id number] #: [id number] Patient: WILLIAM BATRES [id number] [address] [place], [place] [address] [id number] I MR#: [id number] NAME: WILLIAM BATRES ROOM: [facility] Age: 47 Sex: M Admission Date: 07/28/2017 : 1970 Discharge Date: 07/29/2017 Attending Physician: Lee Ann Ryan M.D. Primary Care Physician: No Primary Care Physician DISCHARGE SUMMARY PRINCIPAL DIAGNOSES 1. Acute kidney injury, prerenal. 2. Cannabis-induced hyperemesis. 3. Reactive leukocytosis, now resolved. 4. History of esophagitis and duodenitis. 5. Abnormal urine drug screen, positive for marijuana, TCAs and opiates. 6. Muscular abdominal pain secondary to emesis. 7. History of hypertension without evidence of elevated blood pressure during hospitalization. 8. Tobaccoism. CONSULTANTS None. PROCEDURES Acute abdominal series on July 27, 2017, with normal bowel gas pattern. No active disease in the chest noted. CLINICAL HISTORY/HOSPITAL COURSE Mr. Batres is a nice 47-year-old -[place]er male who presents to the emergency department after multiple episodes of emesis at home. There was a small associated amount of hematemesis on 1 or 2 occasions. Lab work in the emergency department reveals a significantly elevated creatinine at 4.3. White blood cell count was also elevated at 20,000 though patient was afebrile. Acute abdominal series is unremarkable. Urine drug screen was positive for opiates, TCAs and marijuana. Patient was subsequently admitted. In regards to patient's acute kidney injury, he was placed on IV fluids and creatinine on day of discharge has normalized to 1.1. Urinalysis did reveal 2+ protein but was otherwise unremarkable. Due to significant amount of emesis, again I suspect this was prerenal and I have encouraged patient to increase intake of fluids at home. Patient's emesis I believe is likely cannabis-induced. Patient had a similar presentation to this facility in February of 2017, at which point his nausea and vomiting was also felt to be cannabis-induced. I have discussed this with patient several times during hospitalization and he agreed to try to refrain from any further marijuana use and see if that improves his symptoms. I will not patient was scheduled to have an outpatient EGD done with Dr. Staton during hospitalization but ultimately, given his illness and ultimately is eating, this will be rescheduled on an outpatient basis. He was not seen by GI during this hospitalization. Unit #: [id number] #: [id number] Patient: WILLIAM BATRES The patient's other chronic conditions remain stable. I will note he was maintained off of his antihypertensives during hospitalization and blood pressure is running in the 100s. I am going to discontinue these upon discharge. DISCHARGE CONDITION Stable. DISCHARGE STATUS Discharge to home. DISCHARGE MEDICATIONS 1. Paxil 20 mg daily. 2. Zofran 8 mg p.o. q.8 hours p.r.n. for nausea. 3. Discontinue Norvasc. 4. Protonix 40 mg p.o. b.i.d. given with 1 refill. I will not patient also asked for opiate pain medications but I did not feel these are indicated for his hospitalization and they are not given. DISCHARGE INSTRUCTIONS Patient was instructed to follow a regular diet. He can increase activities as tolerated and again to refrain from any further marijuana use. Refrain from tobacco use. FOLLOWUP Patient has been instructed to contact Dr. Staton's office to arrange followup outpatient EGD. Dictated by... Lee Ann Ryan M.D. JOSE/wolf TD: 07/30/2017 09:24 JOB #: [id number] DISCHARGE SUMMARY Page 1 of 1 X Lee Ann Ryan MD X DISCHARGE SUMMARY
--- NOTE | ~2017-07-27 | CR2 ---
[facility] A Service of [facility] RADIOLOGY TEXT RESULTS PATIENT: WILLIAM AKINS LOCATION: [place] [address] : 74 UNIT #: [id number] AGE: [address]: Lee Ann Ryan MD SEX: M ORDER DR: [id number] [facility] [address]. [place], [place] [address] [id number] I MR#: [id number] Acc #: [id number] NAME: WILLIAM AKINS : 1970 SEX: M STUDY DATE/TIME: 07/27/2017 23:29 UNIT: [facility] ROOM: [facility] STUDY DESCRIPTION: CR Abdomen Acute Series Attending Physician: Karen Galvan M.D. Ordering Physician: Enio Grimes M.D. Primary Care Physician: Primary Care Physician No MEDICAL IMAGING REPORT This report is preliminary unless electronic signature is present EXAM Acute abdomen series 07/27/1970 HISTORY 47-year-old male in the ED complaining of 3-day history of midabdomen pain, nausea and vomiting. TECHNIQUE Flat upright abdomen series with AP upright chest x-ray. FINDINGS Abdomen images are negative. Bowel gas pattern is normal with no evidence of bowel obstruction, adynamic ileus or bowel perforation. Surgical clips in the gallbladder fossa. Surgical clips in the right side the pelvis. No active disease in the chest. The lungs are clear. No pleural effusion. 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 Chest unchanged since 06/03/2017. IMPRESSION 1. Negative abdomen. Normal bowel gas pattern. 2. Surgical clips in the gallbladder fossa and in the right side the pelvis. 3. No active disease in the chest. 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 Dictated by... Rajeev Osman M.D. THIS IS AN ELECTRONICALLY VERIFIED REPORT Rajeev Osman M.D. at 07/28/2017 9:58 PM RGW/ledy [facility] A Service of [facility] RADIOLOGY TEXT RESULTS PATIENT: WILLIAM AKINS LOCATION: [facility] 557-01 : 74 UNIT #: [id number] AGE: [address]: Lee Ann Ryan MD SEX: M ORDER DR: TD: 07/28/2017 08:51 JOB #: [id number] MEDICAL IMAGING REPORT Page 1 of 1 COPY
--- NOTE | ~2017-07-27 | DS ---
Unit #: [id number] #: [id number] Patient: WILLIAM AKINS [id number] [address] [address] [id number] I MR#: [id number] NAME: WILLIAM AKINS ROOM: [facility] Age: 47 Sex: M Admission Date: 07/28/2017 : 1970 Discharge Date: 07/29/2017 Attending Physician: Lee Ann Ryan M.D. Primary Care Physician: No Primary Care Physician DISCHARGE SUMMARY ADDENDUM Please note - patient's insurance required preauthorization for twice daily Protonix and, thus, prescription was changed to Protonix 40 mg daily with 1 refill given. Dictated by... Cedric Thompson/wlof TD: 07/30/2017 09:36 JOB #: [id number] DISCHARGE SUMMARY Page 1 of 1 X Lee Ann Ryan MD X DISCHARGE SUMMARY
--- NOTE | ~2017-07-27 | HP ---
Unit #: [id number] #: [id number] Patient: WILLIAM AKINS [id number] [address] [place], [place] [address] [id number] MR#: [id number] NAME: WILLIAM AKINS ROOM: [id number] Age: 47 Sex: M Admission Date: 07/28/2017 : 1970 Attending Physician: Karen Galvan M.D. Primary Care Physician: No Primary Care Physician HISTORY AND PHYSICAL CHIEF COMPLAINT Intractable nausea and vomiting with acute kidney injury. HISTORY This 47-year-old male with a history of Cannabis, hyperemesis syndrome, hypertension, esophagitis and duodenitis, is admitted for intractable nausea and vomiting. Patient states he is well until three days ago when he developed intractable nausea and vomiting with a small amount of hematemesis and upper abdominal pain. Presented to this emergency department late last evening, tachycardic. Labs show acute kidney injury. In the ER he was bolused with two L of saline, give morphine, Protonix, and Phenergan. Currently has hiccups but seems to feel somewhat improved. Acute abdominal series showed no acute disease. Patient presented similarly 02/2017 with acute kidney injuries due to prerenal azotemia from intractable nausea and vomiting diagnosed as Cannabis, hyperemesis syndrome. An EGD was performed at that time showing ulcerative esophagitis, Lauren esophagus, and a distal benign esophageal stricture, which was dilated along with duodenitis. PAST MEDICAL HISTORY 1. Cannabis hyperemesis syndrome. 2. Hypertension. 3. GERD with EGD 02/2019 showing ulcerative esophagitis, Lauren esophagus, distal benign esophageal stricture and duodenitis. 4. Appendectomy. 5. Cholecystectomy. ALLERGIES No known drug allergies. HOME MEDICATIONS Phenergan 25 mg p.r.n., Carafate 1 g q.i.d.; Norvasc 10 mg daily; Paxil 20 mg daily; Zofran p.r.n. I am unsure how compliant patient is with these medicines as he still has pills in the bottles from a prescription a month and a half ago. FAMILY HISTORY Gastroparesis. SOCIAL HISTORY The patient lives with her stepfather. He smokes one pack per day of Unit #: [id number] #: [id number] Patient: WILLIAM AKINS tobacco. Drinks occasional alcohol, smokes THC. REVIEW OF SYSTEMS Notable for intractable nausea, vomiting, some lightheadedness, hypertension, esophagitis, duodenitis, above mentioned surgeries, tobacco abuse, depression. All other systems were reviewed and otherwise negative. PHYSICAL EXAMINATION GENERAL: 47-year-old male with hiccups but otherwise in no acute distress. VITAL SIGNS: Temperature 97.5, pulse 136, respirations 20, blood pressure 142/95, O2 saturation is 97% on room air. HEENT: Eyes - PERRLA. Extraocular muscles are intact. Pharynx is benign. NECK: Supple without adenopathy or thyromegaly. CHEST: Clear. CARDIAC: Normal S1 and S2, slightly tachycardic without murmur. ABDOMEN: Bowel sounds are diminished, mildly tender in the epigastric region. No hepatosplenomegaly or masses. Abdomen is soft. EXTREMITIES: Without clubbing, cyanosis or edema. NEUROLOGIC: Patient is awake, alert, oriented. Cranial nerves are intact. Equal strength throughout. DIAGNOSTIC STUDIES ADMISSION LABS: Hematocrit is 52.9, white blood count is 20.9, MCV of 74 and normal platelet count. SMA 12 - glucose 186, BUN 36, creatinine 4.3, up from a BUN of 13, creatinine 0.9 in February. Chloride is 88, calcium 10.9, protein 10.7, albumin 5.7, lipase normal. IMAGING STUDIES: Acute abdominal series - no acute disease. ASSESSMENT 1. Intractable nausea and vomiting in this patient with history of cannabis hyperemesis syndrome. 2. Acute kidney injury likely prerenal. Patient presented similarly 02/2017. 3. Leukocytosis, which could be reactive. 4. Esophagitis, duodenitis, esophageal stricture dilated 02/2017. 5. Essential hypertension. PLANS 1. IV fluids. 2. Obtain urinalysis and check post void bladder scan. 3. Proton pump inhibitor, Zofran and Reglan. 4. Check urine tox screen. 5. However, patient did receive morphine in the ER, so tox screen will be positive for opiates. 6. If not improving will workup further. Dictated by Karen Galvan M.D. HOLLY/jaden TD: 07/28/2017 05:05 JOB #: [id number] Unit #: [id number] #: [id number] Patient: WILLIAM AKINS CC: [facility] HISTORY AND PHYSICAL Page 1 of 1 X Karen Galvan MD X HISTORY AND PHYSICAL
[2017-07-27 22:24] LABS: BASOPHIL# 0.1 X10e3 (0-0.3); BASOPHIL% 0.3 % (0-2.5); HEMATOCRIT 52.9 % (38.0-50.0); HEMOGLOBIN 16.6 gm/dL (13.0-16.0); LYMPHOCYTE# 1.5 X10e3 (1.0-3.5); LYMPHOCYTE% 7.2 % (17.0-45.0); MEAN CELL VOLUME 73.9 FL (83-96); MEAN CORPUSCULAR HEMOGLOBIN 23.2 PG (28-34); MEAN CORPUSCULAR HGB CONC 31.4 g/dL (30-36); MEAN PLATELET VOLUME 8.8 FL (6.5-11.5); MONOCYTE# 1.4 X10e3 (0-1.0); MONOCYTE% 6.7 % (3.0-12.0); NEUTROPHIL# 17.9 X10e3 (1.5-7.1); NEUTROPHIL% 85.8 % (40-75); PLATELET COUNT 403 X10e3 (140-420); RED BLOOD COUNT 7.15 X10e (3.90-5.60); RED CELL DISTRIBUTION WIDTH 15.7 % (11.0-15.5); WHITE BLOOD COUNT 20.9 X10e3 (4.0-10.5)
[2017-07-27 22:25] LABS: DIFF IND YES
[2017-07-27 22:38] LABS: PLATELET ESTIMATE NORMAL (NORMAL)
[2017-07-27 22:44] LABS: ALBUMIN SERUM 5.7 g/dL (3.5-5.0); BILIRUBIN, DIRECT 0.1 mg/dL (0.0-0.2); BILIRUBIN,INDIRECT 0.5 mg/dL (0.0-0.9); BILIRUBIN,TOTAL 0.6 mg/dL (0.2-2.0); BUN/CREATININE RATIO 8.37; CALCIUM SERUM 10.9 mg/dL (8.4-10.2); CREATININE SERUM 4.3 mg/dL (0.6-1.4); POTASSIUM 3.7 mmol/L (3.5-5.1); PROTEIN TOTAL SERUM 10.7 g/dL (6.0-8.3)
[2017-07-27] MEDS ORDERED: PHENERGAN25 M1 PO (22:51)
[2017-07-27] MEDS ORDERED: NORVASC10 MG PO (22:52)
[2017-07-27] MEDS ORDERED: PAROXETINE HCL20 MG PO (22:52)
[2017-07-27] MEDS ORDERED: CARAFATE1 GM PO (22:52)
[2017-07-27] MEDS ORDERED: ZOFRAN PO (22:53)
[2017-07-28 02:35] LABS: URINE SOURCE CLEAN CATCH
[2017-07-28 02:38] LABS: URINE APPEARANCE CLOUDY; URINE BILIRUBIN NEG (NEG); URINE BLOOD 2+ (NEG); URINE COLOR YELLOW; URINE GLUCOSE NEG (NEG); URINE KETONE NEG (NEG); URINE LEUKOCYTE ESTERASE NEG (NEG); URINE NITRATE NEG (NEG); URINE PROTEIN 2+ (NEG); URINE SPECIFIC GRAVITY 1.023 (1.003-1.035); URINE UROBILINOGEN 0.2 MG/DL (NEG)
[2017-07-28 02:40] LABS: URINE BACTERIA AUWI NEG (NEGATIVE); URINE SQUAMOUS EPITHELIAL CELL OCC /[HPF]
[2017-07-28 02:45] LABS: CULTURE INDICATED? NO
[2017-07-28 02:48] LABS: AMPHETAMINE NEG (NEG); BARBITURATES NEG (NEG); BENZODIAZEPINES NEG (NEG); COCAINE NEG (NEG); MARIJUANA POS (NEG); OPIATES POS (NEG); TRICYCLIC ANTIDEPRESSANTS POS (NEG); U METHADONE NEG (NEG)
[2017-07-28 06:43] LABS: BASOPHIL# 0.1 X10e3 (0-0.3); BASOPHIL% 0.5 % (0-2.5); EOSINOPHIL% 0.1 % (0.0-7.0); HEMATOCRIT 43.4 % (38.0-50.0); LYMPHOCYTE# 1.5 X10e3 (1.0-3.5); LYMPHOCYTE% 9.3 % (17.0-45.0); MEAN CORPUSCULAR HEMOGLOBIN 23.3 PG (28-34); MEAN PLATELET VOLUME 8.2 FL (6.5-11.5); MONOCYTE# 1.6 X10e3 (0-1.0); MONOCYTE% 9.7 % (3.0-12.0); NEUTROPHIL# 13.2 X10e3 (1.5-7.1); NEUTROPHIL% 80.4 % (40-75); PLATELET COUNT 302 X10e3 (140-420); RED BLOOD COUNT 5.94 X10e (3.90-5.60); RED CELL DISTRIBUTION WIDTH 15.4 % (11.0-15.5); WHITE BLOOD COUNT 16.5 X10e3 (4.0-10.5)
[2017-07-28 06:44] LABS: DIFF IND NO; HEMOGLOBIN 13.9 gm/dL (13.0-16.0)
[2017-07-28 07:05] LABS: ALBUMIN SERUM 4.1 g/dL (3.5-5.0); BILIRUBIN,TOTAL 0.3 mg/dL (0.2-2.0); BUN/CREATININE RATIO 12.96; CALCIUM SERUM 9.2 mg/dL (8.4-10.2); CREATININE SERUM 2.7 mg/dL (0.6-1.4); GLOM FILT RATE Estimated 31.6 mL/min (>60); POTASSIUM 4.2 mmol/L (3.5-5.1); PROTEIN TOTAL SERUM 7.8 g/dL (6.0-8.3)
[2017-07-29 06:11] LABS: HEMATOCRIT 37.2 % (38.0-50.0); MEAN CELL VOLUME 73.6 FL (83-96); MEAN CORPUSCULAR HEMOGLOBIN 23.1 PG (28-34); MEAN CORPUSCULAR HGB CONC 31.4 g/dL (30-36); MEAN PLATELET VOLUME 8.3 FL (6.5-11.5); RED BLOOD COUNT 5.05 X10e (3.90-5.60); RED CELL DISTRIBUTION WIDTH 15.4 % (11.0-15.5); WHITE BLOOD COUNT 10.4 X10e3 (4.0-10.5)
[2017-07-29 06:14] LABS: HEMOGLOBIN 11.7 gm/dL (13.0-16.0)
[2017-07-29 06:45] LABS: ALBUMIN SERUM 3.5 g/dL (3.5-5.0); BILIRUBIN,TOTAL 0.7 mg/dL (0.2-2.0); BUN/CREATININE RATIO 15.45; CALCIUM SERUM 8.8 mg/dL (8.4-10.2); CREATININE SERUM 1.1 mg/dL (0.6-1.4); GLOM FILT RATE Estimated 93.5 mL/min (>60); POTASSIUM 4.1 mmol/L (3.5-5.1); PROTEIN TOTAL SERUM 6.1 g/dL (6.0-8.3)
[2017-07-29] MEDS ORDERED: PROTONIX PO (10:10)
== END 2017-07-29 12:15 | disposition home or self-care (01) | DRG 897 ==
LOC: CED 21:11 → CEDOF 07-28 01:00 → CED 07-28 01:16 → CEDOF 07-28 01:16 → C5B 07-28 07:54
PROVIDERS: Emergency Medicine; Internal Medicine
DX: F12.988 Cannabis use, unspecified with other cannabis-induced disorder (principal); N17.9 Acute kidney failure, unspecified; I10 Essential (primary) hypertension; R11.2 Nausea with vomiting, unspecified; Z90.49 Acquired absence of other specified parts of digestive tract; F17.200 Nicotine dependence, unspecified, uncomplicated; D72.829 Elevated white blood cell count, unspecified; K20.9 Esophagitis, unspecified; K29.80 Duodenitis without bleeding
CPT/HCPCS: 36415; 74022; 80048; 80053; 80076; 80307; 81003; 82947; 83690; 83735; 85025; 85027; 96361; 96374; 96375; 99285; C9113; J2270; J2405; J2550; J2765